=== PATIENT | male | born 1965 | race Caucasian/White ===

== ENCOUNTER 2017-03-08 11:06 | Emergency (ER) | payer OTHER ==
[~2017-03-08] VITALS: Ht 157.5 cm; Wt 112.0 kg
[~2017-03-08 11:06] MED LIST: AMOX875 PO; LEVE250 PO; VENTAER INH
[2017-03-08 11:10] VITALS: BP 142/90; PULSE 79; RESP 17; TEMP 98.3; O2SAT 96
[2017-03-08] MEDS ORDERED: LEVE500 PO (11:21)
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
[2017-03-08] MEDS ORDERED: KETOROLAC TROMETHAMINE 60 MG/2 ML (IM) VIAL IM ONE (12:30)
[2017-03-08] MEDS ORDERED: ORPHENADRINE INJ 60 MG/2 ML AMP IM ONE (12:30)
--- NOTE | 2017-03-08 12:39 | RADRPT ---
EXAM DATE/TIME: 03/08/2017 12:08 [facility] COMPARISON: CHEST PA & LAT, December 14, 2011, 9:14. INDICATIONS : Left lower posterior pain post fall down steps. MEDICAL HISTORY : Seizures. SURGICAL HISTORY : Bladder surgery. ENCOUNTER: Initial ACUITY: 2 days PAIN SCORE: 10/10 LOCATION: Left posterior chest FINDINGS: PA and lateral views of the chest demonstrate the lungs to be symmetrically aerated without evidence of mass, infiltrate or effusion. The cardiomediastinal contours are unremarkable. Osseous structure s are intact. There is stable kyphosis of the thoracolumbar spine. CONCLUSION: No acute disease. Stable kyphosis of the thoracolumbar spine. Jefry De La Rosa MD on March 08, 2017 at 12:36 Board Certified Radiologist. This report was verified electronically.
[2017-03-08] MEDS ORDERED: IBUP800T23 PO (12:55)
[2017-03-08] MEDS ORDERED: ROBA500T PO (12:55)
== END 2017-03-08 13:05 | disposition home or self-care (01) ==
LOC: PHEFT 11:06
DX: S39.012A Strain of muscle, fascia and tendon of lower back, initial encounter (principal); S20.212A Contusion of left front wall of thorax, initial encounter; W01.198A Fall on same level from slipping, tripping and stumbling with subsequent striking against other object, initial encounter; Y93.01 Activity, walking, marching and hiking; Y92.511 Restaurant or cafe as the place of occurrence of the external cause; Y99.0 Civilian activity done for income or pay
CPT/HCPCS: 71020; 96372; 99284; J1885; J2360

== ENCOUNTER → 2017-09-21 | Outpatient (CLI) | payer OTHER ==
[~2017-09-21] MED LIST changes: -AMOX875 PO; +IBUP1TAB7 PO; -LEVE250 PO; +LEVE500 PO; +ROBA500T PO; -VENTAER INH
--- NOTE | 2017-09-22 12:41 | RSPPFT ---
DATE OF PROCEDURE: 09/21/17 COMMENTS: Spirometry with FVC of 3.2 at 108% of predicted, FEV1 of 2.6 at 107%, FEV1/FVC ratio is normal. Flow is normal at FEF 25, FEF 50, FEF 75 and FEF 25-75. There is no response after bronchodilator treatment. Lung volumes show residual volume is increased. TLC is normal. Diffusion capacity is normal. Flow volume loop indicates a normal pattern. IMPRESSION: 1. Normal spirometry. 2. No response after bronchodilator treatment. 3. Normal lung volumes. 4. Normal diffusion capacity.
== END ==
LOC: PHRSP 10:37
PROVIDERS: ATTEND Specialist
DX: R05 Cough (principal)
CPT/HCPCS: 94060; 94726; 94729